=== PATIENT | male | born 1995 | race Caucasian/White ===

== ENCOUNTER 2019-01-29 12:40 | Observation (INO) ==
[2019-01-29] MEDS ORDERED: ONDANSETRON 4 MG/2 ML VIAL IV ONE (12:52)
[2019-01-29] MEDS ORDERED: 0.9 % SODIUM CHLORIDE 1,000 ML IV ONE (12:52)
[2019-01-29] MEDS: HYDROmorphone 2 MG/ML VIAL IV PRN ×8 (13:01→15:11)
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
[2019-01-29] MEDS ORDERED: SILVER SULFADIAZINE CREAM.TOP 25GM TOPICAL ONE (13:28)
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
[2019-01-29 14:42] LABS: ALT/SGPT 15 U/l (0-40); AST/SGOT 24 U/l (0-37); Albumin 4.9 gm/dL (3.2-5.2); Albumin/Globulin Ratio 1.7 (1.0-2.3); Alkaline Phosphatase 56 U/L (39-117); Bilirubin,Total 0.6 mg/dL (0.0-1.0); Blood Urea Nitrogen 12 mg/dl (6-20); Calcium 9.4 mg/dl (8.6-10.4); Carbon Dioxide 20 mmol/L (22-30); Chloride 102 mmol/L (96-108); Globulin 2.9 gm/dL (2.2-3.7); Glomerular Filtration Rate 126; Glucose 108 mg/dL (70-105)
[2019-01-29 15:36] LABS: Basophils # (Auto) 0 K/mcL (0.0-0.3); Basophils % (Auto) 0.1 % (0.0-2.0); Eosinophils # (Auto) 0 K/mcL (0.0-0.7); Eosinophils % (Auto) 0 % (0.0-7.0); Granulocytes % (Auto) 89.8 % (38.0-78.0); Hematocrit 45.3 % (41.0-55.0); Hemoglobin 14.9 g/dL (13.5-16.5); Lymphocytes # (Auto) 0.9 K/mcL (1.5-4.8); Lymphocytes % (Auto) 5.5 % (15.5-49.0); Mean Cell Volume 94.9 fL (80.0-100.0); Mean Corpuscular HGB Conc 32.8 g/dL (31.0-36.0); Mean Platelet Volume 7.7 fL (7.4-10.4); Monocytes # (Auto) 0.8 K/mcL (0.1-0.9); Monocytes % (Auto) 4.6 % (1.0-12.0); Platelet Count 312 K/mcL (140-440); RBC 4.78 M/mcL (4.50-5.90); WBC 16.9 K/mcL (4.5-11.0)
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
[2019-01-29] MEDS ORDERED: HYDROmorphone 2 MG/ML VIAL IV ONE (16:33)
[2019-01-29] MEDS ORDERED: NICOTINE 14 MG PATCH TOPICAL ONE (16:41)
[2019-01-29] MEDS ORDERED: ONDANSETRON 4 MG/2 ML VIAL IV PRN (17:27)
[2019-01-29] MEDS ORDERED: diphenhydrAMINE 25 MG CAPSULE PO SCH (17:27)
[2019-01-29] MEDS ORDERED: MAGNESIUM HYDROXIDE 30 ML ORAL.SUSP PO PRN (17:27)
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
[2019-01-29] MEDS: 0.9 % SODIUM CHLORIDE 1,000 ML IV SCH (17:34)
[2019-01-29] MEDS ORDERED: KETOROLAC 30 MG/ML VIAL ONE (17:46)
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
[2019-01-29] MEDS: NICOTINE 7 MG PATCH TOPICAL SCH (20:32)
[2019-01-29] MEDS: NICOTINE 21 MG PATCH TOPICAL SCH (20:32)
[2019-01-29] MEDS ORDERED: MELATONIN 3 MG TABLET PO SCH (21:00)
[2019-01-29] MEDS ORDERED: diphenhydrAMINE 25 MG CAPSULE PO PRN (21:50)
[2019-01-29] MEDS: KETOROLAC 30 MG/ML VIAL IV PRN (21:57)
[2019-01-29] MEDS: 0.9 % SODIUM CHLORIDE 10 ML SYRINGE IV SCH (21:58)
[2019-01-30] MEDS: ACETAMINOPHEN 325 MG TABLET PO PRN ×2 (00:07→10:40)
[2019-01-30] MEDS: 0.9 % SODIUM CHLORIDE 1,000 ML IV SCH (03:07)
[2019-01-30] MEDS: 0.9 % SODIUM CHLORIDE 10 ML SYRINGE IV SCH (05:40)
[2019-01-30 05:56] LABS: Basophils # (Auto) 0 K/mcL (0.0-0.3); Basophils % (Auto) 0 % (0.0-2.0); Eosinophils # (Auto) 0.1 K/mcL (0.0-0.7); Eosinophils % (Auto) 1.6 % (0.0-7.0); Granulocytes % (Auto) 55.5 % (38.0-78.0); Hematocrit 43.2 % (41.0-55.0); Hemoglobin 14.7 g/dL (13.5-16.5); Lymphocytes # (Auto) 2.9 K/mcL (1.5-4.8); Lymphocytes % (Auto) 32.6 % (15.5-49.0); Mean Cell Volume 93.3 fL (80.0-100.0); Monocytes # (Auto) 0.9 K/mcL (0.1-0.9); Monocytes % (Auto) 10.3 % (1.0-12.0); Platelet Count 285 K/mcL (140-440); RBC 4.63 M/mcL (4.50-5.90); Red Cell Distribution Width 12.6 % (11.5-14.5)
[2019-01-30 06:23] LABS: ALT/SGPT 12 U/l (0-40); AST/SGOT 19 U/l (0-37); Albumin 3.7 gm/dL (3.2-5.2); Albumin/Globulin Ratio 1.5 (1.0-2.3); Alkaline Phosphatase 46 U/L (39-117); Bilirubin,Direct < 0.2 mg/dL (0.0-0.3); Bilirubin,Total 0.9 mg/dL (0.0-1.0); Blood Urea Nitrogen 10 mg/dl (6-20); Calcium 8.6 mg/dl (8.6-10.4); Carbon Dioxide 22 mmol/L (22-30); Chloride 108 mmol/L (96-108); Globulin 2.4 gm/dL (2.2-3.7); Glomerular Filtration Rate 133; Glucose 111 mg/dL (70-105); Lactate Dehydrogenase 204 U/L (94-250); Phosphorous 3.6 mg/dL (2.7-4.5); Triglycerides 65 mg/dl (<150); Uric Acid 4.7 mg/dL (2.5-8.0)
[2019-01-30] MEDS: KETOROLAC 30 MG/ML VIAL IV PRN (07:04)
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
[2019-01-30] MEDS ORDERED: FLU VACC QS2019-20(6MOS UP)/PF 60 MCG/0.5 ML SYRINGE IM ONE (12:00)
[2019-01-30] MEDS: NICOTINE 21 MG PATCH TOPICAL SCH (16:10)
[2019-01-30] MEDS: NICOTINE 7 MG PATCH TOPICAL SCH (16:10)
== END 2019-01-30 13:00 | disposition home or self-care (01) ==
LOC: MEDSUR 12:40 → ED 12:40 → MEDSUR 17:03
PROVIDERS: ADMIT Internal Medicine; ATTEND Internal Medicine